=== PATIENT | female | born 2000 | race Caucasian/White ===

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

== ENCOUNTER 2018-04-16 23:15 | Emergency (ER) | payer OTHER ==
[~2018-04-16] VITALS: Ht 152.4 cm; Wt 44.0 kg
[2018-04-16 23:23] VITALS: Ht 152.4 cm; Wt 44.0 kg
[2018-04-17 00:14] VITALS: BP 111/70
== END 2018-04-17 00:14 | disposition home or self-care (01) ==
LOC: ED 23:15
DX: L03.116 Cellulitis of left lower limb (principal)

== ENCOUNTER 2018-04-20 21:26 | Inpatient (IN) | payer OTHER ==
[~2018-04-20] VITALS: Ht 152.4 cm; Wt 45.0 kg
[2018-04-20 22:06] VITALS: Ht 152.4 cm; Wt 45.0 kg
[2018-04-20 22:51] LABS: BASOPHIL % 0.3 % (0-2); PLATELET COUNT 255 x10^3mcL (130-400); RED CELL DISTRIBUTION WIDTH 13.1 % (11.5-14.5)
[2018-04-20 23:02] LABS: CALCIUM 8.9 mg/dL (8.5-10.1); CARBON DIOXIDE 24.7 mmol/L (21-32); CHLORIDE SERUM 101 mmol/L (98-107); CREATININE SERUM 0.7 mg/dL (0.6-1.0); GFR1 > 60 mL/min; GLUCOSE SERUM 114 mg/dL (74-106); POTASSIUM SERUM 4.3 mmol/L (3.5-5.1); SODIUM SERUM 137 mmol/L (136-145)
[2018-04-20 23:12] LABS: ALBUMIN 4.2 g/dL (3.4-5.0); ALKALINE PHOSPHATASE 76 U/L (46-116); ALT/SGPT 21 U/L (14-59); AST/SGOT 24 U/L (15-37); BILIRUBIN TOTAL 0.4 mg/dL (0.20-1.00); C REACTIVE PROTEIN 0.9 mg/dL (<=0.9); TOTAL PROTEIN, SERUM 8.3 g/dL (6.4-8.2)
[2018-04-20 23:34] LABS: FREE T4 0.99 ng/dL (0.76-1.46); FREE THYROXINE INDEX 2.5 ug/dL (1.4-4.5); T4(THYROXINE) 8.1 ug/dL (4.7-13.3)
[2018-04-20 23:40] LABS: CK-MB < 0.5 ng/mL (0-3.6); CREATINE KINASE 83 U/L (26-192)
[2018-04-20 23:42] LABS: microscopic required? YES; urine erythrocyte 3+ (NEGATIVE)
[2018-04-21 00:01] LABS: ERYTHROCYTE SED RATE 25 mm/hr (0-20)
[2018-04-21 00:55] LABS: T3 TOTAL 1.19 ng/mL
[2018-04-21 02:39] VITALS: BP 96/56
[2018-04-21 10:10] VITALS: BP 88/46
[2018-04-21 11:45] VITALS: BP 99/61
[2018-04-21 17:27] VITALS: BP 98/52
[2018-04-21 20:54] VITALS: BP 122/69
[2018-04-22 06:11] VITALS: BP 100/52
[2018-04-22 07:57] VITALS: BP 90/44
[2018-04-22 08:02] LABS: CARBON DIOXIDE 26.3 mmol/L (21-32); CHLORIDE SERUM 105 mmol/L (98-107); CREATININE SERUM 0.7 mg/dL (0.6-1.0); GFR1 > 60 mL/min; GLUCOSE SERUM 83 mg/dL (74-106); POTASSIUM SERUM 3.3 mmol/L (3.5-5.1); SODIUM SERUM 140 mmol/L (136-145)
[2018-04-22 08:32] LABS: BASOPHIL % 0.5 % (0-2); PLATELET COUNT 205 x10^3mcL (130-400); RED CELL DISTRIBUTION WIDTH 13.1 % (11.5-14.5)
[2018-04-22 10:55] VITALS: BP 90/44
== END 2018-04-22 12:20 | disposition home or self-care (01) | DRG 720 ==
LOC: ED 21:26 → DU 04-21 00:59
PROVIDERS: Internal Medicine; Specialist
DX: A41.9 Sepsis, unspecified organism (principal); L02.416 Cutaneous abscess of left lower limb; L03.116 Cellulitis of left lower limb; R73.9 Hyperglycemia, unspecified
CPT/HCPCS: 84439; J2543; J3490; J7030; J7050

== ENCOUNTER 2019-07-31 03:07 | Emergency (ER) | payer OTHER ==
[~2019-07-31] VITALS: Ht 152.4 cm; Wt 48.5 kg
[2019-07-31 03:30] VITALS: Ht 152.4 cm; Wt 48.5 kg
[2019-07-31 06:53] VITALS: BP 111/27
== END 2019-07-31 06:53 | disposition home or self-care (01) ==
LOC: ED 03:07
DX: R42 Dizziness and giddiness (principal); H83.8X1 Other specified diseases of right inner ear